=== PATIENT | male | born 1985 | race Caucasian/White ===

== ENCOUNTER 2017-07-23 | Emergency (ER) | payer OTHER ==
[~2017-07-23] VITALS: Ht 198.1 cm; Wt 151.9 kg
[~2017-07-23] MED LIST: BACTRIM,SEPT1 TABLET PO; CEFDINIR300 MG PO; FLOMAX0.4 MG PO; HYDROCODON-ACE1 EAC7 PO; LEVAQUIN500 MG PO; LEVAQUIN750 MG PO; NAPROSYN500 MG PO; NORCO 5/3251 TABLET PO; PERCOCET 5/31 TABLET PO; PROMETHAZINE HC25 M1 PO; ULTRACET1 TABLET PO; ZOFRAN4 MG PO
[2017-07-23 10:54] LABS: HEMATOCRIT 43.2 % (38.0-50.0); HEMOGLOBIN 14.7 G/DL (12.5-16.6); MCH 29.4 PG (29.0-34.0); MCV 86.4 FL (86-99); PLATELET COUNT 174 K/uL (156-360); RBC DIS.WIDTH-CV 12.8 % (11.8-14.6); RBC DIS.WIDTH-SD 39.7 % (39-53)
[2017-07-23 11:04] LABS: CHLORIDE 107 mEq/L (99-109); POTASSIUM 4.5 mEq/L (3.7-5.4); SODIUM 141 mEq/L (136-147)
[2017-07-23 11:06] LABS: GLUCOSE 97 mg/dL (70-99)
[2017-07-23 11:10] LABS: CREATININE 0.9 mg/dL (0.6-1.3); GFR ESTIMATE (CALCULATED) > 59 mL/min/ (58.99-99999)
[2017-07-23 11:11] LABS: UREA NITROGEN (BUN) 11 mg/dL (9-23)
[2017-07-23] MEDS ORDERED: PREDNISONE10 M1 PO (13:01)
[2017-07-23] MEDS ORDERED: ZOVIRAX400 MG PO (13:02)
[2017-07-23 13:32] VITALS: BP 123/93
== END 2017-07-23 13:33 | disposition home or self-care (01) ==
LOC: EME
PROVIDERS: Physician Assistant
DX: G51.0 Bell's palsy (principal); Z72.0 Tobacco use; Z87.442 Personal history of urinary calculi
CPT/HCPCS: 70450; 71046; 80048; 85027; 93005; 99281; 99284; J7512